=== PATIENT | female | born 1990 | race Caucasian/White ===

== ENCOUNTER → 2022-12-20 | Outpatient (CLI) | payer MEDICAID ==
--- NOTE | 2022-12-20 15:13 | FL ---
EXAMINATION TYPE: FL hysterosalpingography DATE OF EXAM: 12/20/2022 3:05 PM CLINICAL INDICATION:Female, 32 years old with history of N97.9 FEMALE INFERTILITY, UNSPECIFIED; COMPARISON: None TECHNIQUE: The patient was draped in a sterile technique. A speculum examination was performed to aakash ntify the cervical os and no abnormal cervical discharge was noted. A 5-Luxembourger catheter was inserted past the cervix and its balloon insufflated. The speculum was then removed and under fluoroscopic gu idance 5 mL of Isovue 370 was injected into the endometrial cavity. Frontal and oblique fluoroscopic images were obtained, the balloon deflated, and catheter removed. A preprocedural fluoroscopic imag e of the pelvis was obtained. Fluoroscopic time: 5 min Fluoroscopic images: No Radiographs taken: 7 DAP: 89.36 mGym2 FINDINGS: Electronic Device Monitor view of the pelvis demonstrates no acute process or osseous abnormality. Uterus: The endometrium demonstrates The morphology of the opacified uterine cavity does not reveal a ny obvious filling defect such as any septum. . Right fallopian tube: The right fallopian tube has a normal appearance and demonstrates extravasation of contrast into the pelvis. Left fallopian tube: The left fallopian tube has a normal appearance and demonstrates extravasation o f contrast into the pelvis. Contrast was seen in both Fallopian tubes with normal spillage into the pelvis bilaterally. IMPRESSION: Patent fallopian tubes with free spillage of contrast bilaterally.
== END | disposition home or self-care (01) ==
LOC: RADUSWWP 13:19
PROVIDERS: ATTEND Obstetrics & Gynecology Obstetrics
DX: N97.9 Female infertility, unspecified (principal)
CPT/HCPCS: 58340; 74740; Q9967